=== PATIENT | male | born 1950 | race Caucasian/White ===

== ENCOUNTER 2021-04-17 17:31 | Emergency (ER) | payer MEDICARE, OTHER ==
[~2021-04-17] VITALS: Ht 185.4 cm; Wt 92.8 kg
--- NOTE | 2021-04-17 19:04 | PHYS DOC ---
Past Medical History Past Surgical History: No Surgical History General Adult EDM: Chief Complaint: SHOULDER INJURY HPI: HPI: Patient is a 71 year old male here with right shoulder pain after falling at home today. He thinks that he fell on the lateral shoulder area, he tried to catch himself but was unable to do so. He had fallen and tripped down 2-3 stairs, while wearing flip-flops. He was able to get up on his own, get dressed. EMS fashioned a sling for him, but he declined EMS transport to the hospital. His brought him in by private vehicle. He denies any previous known injury to this extremity. He denies head injury, loss of consciousness. He denies neck pain or back pain. He denies numbness or tingling. He denies chest pain or dyspnea. He reports that he has had a cough for some time, with "rattling" in his chest and wheezing. He has had this off and on for years, he reports that he is a former smoker, but he does not have a formal diagnosis of chronic bronchitis, COPD, or any obstructive pulmonary disease, to his knowledge. Review of Systems: Review of Systems: Constitutional: Denies fever or chills. [] HENT: Denies nasal congestion or sore throat. [] Respiratory: Chronic and unchanged cough, wheezing, no significant dyspnea reported. Cardiovascular: Denies chest pain or edema. [] GI: Denies abdominal pain, nausea, vomiting Musculoskeletal: Denies neck pain or back pain. Reports right shoulder pain Integument: Denies rash. Denies open wounds. Neurologic: Denies headache, focal weakness or sensory changes. Denies dizziness or syncope. Psychiatric: Denies depression or anxiety. [] Heart Score: C/O Chest Pain: No Risk Factors: Risk Factors: DM, Current or recent (<one month) smoker, HTN, HLP, family history of CAD, obesity. Risk Scores: Score 0 - 3: 2.5% MACE over next 6 weeks - Discharge Home Score 4 - 6: 20.3% MACE over next 6 weeks - Admit for Clinical Observation Score 7 - 10: 72.7% MACE over next 6 weeks - Early Invasive Strategies Physical Exam: PE: Constitutional: Well developed, well nourished, no acute distress, non-toxic appearance. [] HENT: Normocephalic, atraumatic, Eyes: Sclera are clear, conjunctiva are normal Neck: Normal range of motion, no tenderness, supple, no stridor. [] Cardiovascular:Heart rate regular rhythm, well perfused appearing Lungs & Thorax: Expiratory wheezing noted bilaterally, no evidence of distress, very mild tachypnea. Occasional scattered rhonchi. Abdomen: Abdomen is soft, nondistended, nontender Skin: Warm, dry, no erythema, no rash. No open wounds noted. Back: No tenderness, no CVA tenderness. [] Extremities: Soft tissue swelling, bony and soft tissue tenderness of the proximal right shoulder and humerus. There is no palpable tenderness or deformity of the right clavicle. Limited range of motion of the right shoulder secondary to injury and pain. Distal humerus, right elbow, right forearm, wrist hand and digits are all nontender. No evidence of wrist drop. Compartments are soft. Neurologic: Alert and awake and oriented X 3, normal motor function, normal sensory function, no focal deficits noted. Distal motor strength is normal of the right upper extremity, proximal motor strength limited by injury/fracture. Psychologic: Affect normal, judgement normal, mood normal. [] Current Patient Data: Vital Signs: Vital Signs Date Time Temp Pulse Resp B/P (MAP) Pulse Ox O2 Delivery O2 Flow Rate FiO2 04/17/21 17:35 98.1 103 24 208/112 (144) 94 Room Air 98.1 EKG: EKG: [] Radiology/Procedures: Radiology/Procedures: IMAGING REPORT Signed PATIENT: KATE CROOK EACCOUNT: [id number] : 1950 LOCATION: ER AGE: 71 SEX: M EXAM STATUS: REG ER ORD. PHYSICIAN: JESUS KEENE DO REASON: pain/injury PROCEDURE: SHOULDER 2+V RIGHT XR SHOULDER_RIGHT 2+ VIEWS History: Pain/injury Comparison: None. Technique: 2 views of the right shoulder Findings: Osseous mineralization is normal. There is a comminuted fracture of the right humeral head and neck. Mild inferior subluxation of the humeral head. Right shoulder effusion. Calcified right hilar lymph nodes. Degenerative changes of the acromioclavicular joint. Impression: 1. Comminuted fracture of the right humeral head and neck. Electronically signed by: Chacorta Fortune MD (04/17/2021 11:17 PM) [facility] DICTATED and SIGNED BY: CHACORTA FORTUNE MD DATE: 04/17/21 [id number] 0 Course & Med Decision Making: Course & Med Decision Making Pertinent Labs and Imaging studies reviewed. (See chart for details) Patient is given IV morphine and p.o. [place] for pain. He is placed in a sling. He reports that he is ready to go home, he feels much better. He is also given a DuoNeb treatment, his lung exam is improved. I do suspect he has underlying COPD or some form of obstructive pulmonary disease. I recommended he contact the [facility] for follow-up. I will prescribe a bronchodilator for him to have at home. I explained that his fracture will most likely be managed nonoperatively. I recommend he contact orthopedics on Tuesday. Strict return pr ecautions are given. He verbalizes understanding, he is comfortable with the plan of care. Dragon Disclaimer: Dragprashanth Disclaimer: This electronic medical record was generated, in whole or in part, using a voice recognition dictation system. Departure Departure Impression: Primary Impression: Fracture of humerus, proximal, right, closed Disposition: 01 HOME / SELF CARE / HOMELESS Condition: STABLE Referrals: JOSE A JAMES MD (PCP) LISA BERGMAN II, MD, EVERETT J Jr. DO Patient Instructions: Humerus Fracture, Treated with Immobilization, Shoulder Fracture Additional Instructions: Use the pain medication as needed/as directed. Keep the sling on for comfort. Do not take yourself out of the sling except for gentle washing underneath your axilla. Return to the ER for severe swelling, more severe pain, if you are acutely injured or sustained any other trauma, if you develop severe numbness or tingling or weakness in your upper extremity or for any other concerns. You are being given information for outpatient orthopedic follow-up. Please contact them on Tuesday to arrange for this. Please also follow-up with your primary care physician peer Scripts Albuterol Sulfate (PROAIR HFA INHALER) 8.5 Gm [email or web address] 2 PUFF IH PRN Q4-6HRS PRN for wheezing, #1 INHALER 1 Refill Prov: JORY GUERRA DO 04/17/21 Hydrocodone Bit/Acetaminophen (HYDROCODONE-APAP 5-325 ) 1 Tab Tablet 1 TAB PO PRN Q6HRS PRN for PAIN, #20 TAB 0 Refills Prov: JORY GUERRA DO 04/17/21 JOYR GUERRA DO Apr 17, 2021 19:04
[2021-04-17] MEDS ORDERED: MORPHINE SULFATE 4 MG/ML INJ. IVP ONE (19:45)
[2021-04-17] MEDS ORDERED: IPRATRPIUM/ALBUTEROL 0.5/2.5MG 3 ML NEBU. NEB ONE (19:45)
[2021-04-17] MEDS ORDERED: HYDROcodone/APAP 5/325MG 1 TAB TABLET PO ONE (21:15)
[2021-04-17] MEDS ORDERED: ALBU2.5V8 IH (21:22)
[2021-04-17] MEDS ORDERED: HYDR-2761 PO (21:22)
[2021-04-17 21:24] VITALS: BP 186/93
--- NOTE | 2021-04-17 23:20 | RAD ---
XR SHOULDER_RIGHT 2+ VIEWS History: Pain/injury Comparison: None. Technique: 2 views of the right shoulder Findings: Osseous mineralization is normal. There is a comminuted fracture of the right humeral head and neck. Mild inferior subluxation of the humeral head. Right shoulder effusion. Calcified right hilar lymph n odes. Degenerative changes of the acromioclavicular joint. Impression: 1. Comminuted fracture of the right humeral head and neck. Electronically signed by: Chacorta Garber MD (04/17/2021 11:17 PM) [facility]
== END 2021-04-17 21:59 | disposition home or self-care (01) ==
LOC: ER 17:31
DX: S42.201A Unspecified fracture of upper end of right humerus, initial encounter for closed fracture (principal); W01.0XXA Fall on same level from slipping, tripping and stumbling without subsequent striking against object, initial encounter; Y93.89 Activity, other specified; Y92.098 Other place in other non-institutional residence as the place of occurrence of the external cause; Y99.8 Other external cause status
CPT/HCPCS: 73030; 94640; 96374; 99284; J2270